=== PATIENT | male | born 1995 | race African-American/Black ===

== ENCOUNTER 2018-11-25 12:52 | Emergency (ER) | payer BC ==
[2018-11-25 13:04] VITALS: BP 126/62; PULSE 82; TEMP 98.2; BMI 42.1
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
[2018-11-25] MEDS ORDERED: SILVER SULFADIAZINE 1% TOP CREAM 50 GM JAR TP ONE ×2 (13:32→13:33)
== END 2018-11-25 14:10 | disposition home or self-care (01) ==
LOC: JERFT 12:52
PROC: 2W2SX4Z Dressing of Right Foot using Bandage (ICD-10-PCS; principal; 2018-11-25)
DX: T25.221A Burn of second degree of right foot, initial encounter (principal); X08.8XXA Exposure to other specified smoke, fire and flames, initial encounter; Y93.89 Activity, other specified; Y92.89 Other specified places as the place of occurrence of the external cause; Y99.8 Other external cause status
CPT/HCPCS: 99281-25

== ENCOUNTER 2018-12-02 10:15 | Emergency (ER) | payer BC ==
[2018-12-02 10:38] VITALS: BP 117/51; PULSE 79; TEMP 98.3; BMI 19.8
[2018-12-02] MEDS ORDERED: BACITRACIN 15 GM TUBE TOPICAL OINTMENT TP ONE (11:05)
[2018-12-02] MEDS ORDERED: BACITRACIN 15 GM TUBE TOPICAL OINTMENT ONE (11:06)
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
== END 2018-12-02 11:18 | disposition home or self-care (01) ==
LOC: JERFT 10:15
DX: T25.221D Burn of second degree of right foot, subsequent encounter (principal); Z48.00 Encounter for change or removal of nonsurgical wound dressing
CPT/HCPCS: 99281-25

== ENCOUNTER 2023-11-30 20:14 | Emergency (ER) | payer OTHER ==
[2023-11-30 20:26] VITALS: BP 114/78; PULSE 113; RESP 20; TEMP 100.4; BMI 18.4
[2023-11-30] MEDS: ACETAMINOPHEN 1000 MG/100 ML BAG IVPB ONE (21:30)
[2023-11-30] MEDS ORDERED: ACETAMINOPHEN INJECTION 100 ML IVPB ONE (21:49)
[2023-11-30 22:09] LABS: HEMATOCRIT 44.7 % (35.4-49); HEMOGLOBIN 14.7 G/dL (11.7-16.9); MCH 29.7 pg (25.7-33.7); MCHC 32.8 g/dl (32.0-35.9); MEAN CELL VOLUME 90.4 fl (80-96); MEAN PLT VOLUME 7.9 fl (7.5-11.1); PLATELET COUNT 242.8 10^3/uL (134-434); RBC 4.94 10^6/uL (4.00-5.60); RDW 13.7 % (11.9-15.9); WHITE BLOOD COUNT 17.1 10^3/uL (4.0-10.8)
[2023-11-30] MEDS: morphine CARPU-JECT 2 MG/1 ML DISP.SYRIN IVPUSH ONE (22:19)
[2023-11-30 22:30] LABS: ALBUMIN 4.7 g/dl (3.4-5.0); BILIRUBIN,TOTAL 1.1 mg/dl (0.2-1); CALCIUM 10.1 mg/dl (8.5-10.1); POTASSIUM 4.5 mmol/L (3.5-5.1); TOT PROT 7.1 g/dl (6.4-8.2)
[2023-11-30] MEDS ORDERED: AMOX TR/POT CLAV 875MG/125MG TABLETS (FP) ONE (22:56)
[2023-11-30] MEDS: AMOX TR/POT CLAV 875MG/125MG TABLETS (FP) PO ONE (23:00)
== END 2023-11-30 23:15 | disposition home or self-care (01) ==
LOC: FER 20:14
PROC: 3E033NZ Introduction of Analgesics, Hypnotics, Sedatives into Peripheral Vein, Percutaneous Approach (ICD-10-PCS; principal; 2023-11-30)
PROC: 3E033GC Introduction of Other Therapeutic Substance into Peripheral Vein, Percutaneous Approach (ICD-10-PCS; 2023-11-30)
PROC: 0H98XZZ Drainage of Buttock Skin, External Approach (ICD-10-PCS; 2023-11-30)
DX: K61.1 Rectal abscess (principal); R50.9 Fever, unspecified
CPT/HCPCS: 36415; 72192-TC; 80053; 85027; 87040; 99285-25; J0131